=== PATIENT | male | born 1980 | race African-American/Black ===

== ENCOUNTER 2017-08-28 16:29 | Inpatient (IN) | payer OTHER, SELFPAY ==
[2017-08-28] MEDS ORDERED: Dextrose 50% Abboject 50 ML SYRINGE SLOW IVP PRN (19:11)
[2017-08-28] MEDS ORDERED: Promethazine HCl 25 MG/ML VIAL IM PRN ×2 (19:11)
[2017-08-28] MEDS ORDERED: Dextrose 5% in Water 1,000 ML IV PRN (19:11)
[2017-08-28] MEDS ORDERED: HYDROcodone/Acetaminophen 10/325 mg Tablet PO PRN ×2 (19:11)
[2017-08-28] MEDS ORDERED: Ondansetron ODT 4 MG TAB PO PRN (19:11)
[2017-08-28] MEDS ORDERED: Ondansetron HCl/PF 4 MG/2 ML Vial IVP PRN (19:11)
[2017-08-28] MEDS: Famotidine 20 MG TAB PO SCH (21:41)
--- NOTE | 2017-08-28 21:50 | HP ---
DATE OF ADMISSION: 08/28/2017 REQUESTING PHYSICIAN: Dr. Pop Doan. ATTENDING SURGEON: Dr. Ríos. CONSULTATIONS: Orthopedics, Dr. Dubois. HISTORY OF PRESENT ILLNESS: Patient is a 37-year-old -[place] man who was moving a water hea ter for this morning when he slipped and fell. Patient had immediate pain to his right ankle, at [facility] time he had his take him to the emergency department in [place], where he underwent eval uation and examination was noted to have a bimalleolar fracture and transverse process fractures are of the T of the lumbar spine. Given the patient was transferred to facility for further evaluation, admission, and evaluation by Orthopedics. The patient arrived at our facility, he is doing well. Hi s radiographs were reviewed by Dr. Dubois who plans on taking the patient to [facility]. The patient will be made n.p.o. after midnight. ALLERGIES: None. MEDICATIONS: None. PAST MEDICAL HISTORY: None. PAST SURGICAL HISTORY: None. SOCIAL HISTORY: Patient smokes a half to 1 pack per day, drinks 1-2 times per month. Denies drug us e. Works in construction. Lives at home with family. FAMILY MEDICAL HISTORY: Diabetes and hypertension. REVIEW OF SYSTEMS: Ten-point review of systems negative, unless otherwise stated. PHYSICAL EXAMINATION: VITAL SIGNS: Blood pressure 123/75, heart rate 45, respirations 16, oxygen saturation is 98% on room air. GENERAL: Patient is resting comfortably in bed. He is awake, alert, and oriented x3. [place] coma scale is 15. HEENT: Head is normocephalic, atraumatic. Eyes: Extraocular motion intact. PERRLA bilaterally. E ars are atraumatic without discharge. Oropharynx is clear. NECK: Nontender. Trachea is midline. No JVD. CHEST: Clear to auscultation with good inspiratory and expiratory effort. HEART: Regular rate and rhythm. ABDOMEN: Soft, flat, nontender with active bowel sounds. Pelvis is stable. EXTREMITIES: Right lower extremity is immobilized in a posterior splint. All extremities are neurov ascularly intact x4. Capillary refill is less than 3 seconds and pulses are 2+. BACK: Atraumatic and nontender. LABORATORY FINDINGS: White blood cell count 9.6, hemoglobin 13.9, hematocrit 40.2, platelets 247. S odium 136, potassium 4.3, chloride 102, CO2 of 22, BUN 13, creatinine 1.10, glucose 95. LFTs are unr emarkable. CK 333, CK-MB 2.5, troponin less than 0.010. BNP less than 10. Urinalysis is unremarkab le. RADIOGRAPHIC FINDINGS: CT of the chest, abdomen, and pelvis with IV contrast shows mild left lumbar transverse process fractures. No unstable injuries apparent, no acute traumatic injuries demonstrate d. The left transverse process fractures are of L2, L3, and L4. Radiographs of the right ankle show mildly displaced bimalleolar fracture of the right ankle. R adiographs of the tibia and fibula showed again the right bimalleolar ankle fracture. ASSESSMENT AND PLAN: 1. Status post fall. 2. Right bimalleolar fracture. 3. Acute pain secondary to trauma. PLAN: Plan will be to admit the patient to the surgical floor, make n.p.o. after midnight. He will have pain control, pulmonary toilet, gastritis, mechanical DVT prophylaxis postoperatively with Physi carlotta and Occupational Therapy evaluate him and possibly discharged home late tomorrow afternoon or the following day depending on how he progresses with therapy. The evaluation, examination, laboratory, and radiographic findings will be discussed with Dr. Ríos after this dictation.
[2017-08-28] MEDS: Sodium Chloride 0.9% 1,000 ML IV SCH (22:27)
[2017-08-28] MEDS: Acetaminophen 1,000 MG in Premix Bag 1 BAG IVPB SCH (23:33)
[2017-08-28] MEDS: Ketorolac Tromethamine 30 MG/ML VIAL IVP SCH (23:34)
[2017-08-29 00:34] VITALS: TEMP 98.1
[2017-08-29 01:33] VITALS: BMI 24.1
[2017-08-29] MEDS: Acetaminophen 1,000 MG in Premix Bag 1 BAG IVPB SCH (05:56)
[2017-08-29] MEDS: Ketorolac Tromethamine 30 MG/ML VIAL IVP SCH ×2 (05:57→12:54)
[2017-08-29] MEDS: Sodium Chloride 0.9% 1,000 ML IV SCH (05:57)
[2017-08-29 06:03] LABS: #Lymphocytes 1.8 thou/uL (1.20-3.40); #Monocytes 0.8 thou/uL (0.11-0.59); #Neutrophils 2.7 thou/uL (1.40-6.50); %Basophils 0.6 % (0.0-1.0); %Eosinophils 0.9 % (0.0-10.0); %Lymphocytes 33.5 % (21.0-51.0); %Monocytes 14.2 % (0.0-10.0); %Neutrophils 50.7 % (42.0-75.0); Hemoglobin 12.9 g/dL (14.0-18.0); Mean Corpuscular HGB CONC 33.4 g/dL (32.0-36.0); Mean Corpuscular Volume 89.8 fL (78.0-98.0); Mean Platelet Volume 7.6 fL (7.4-10.4); Platelet Count 215 thou/uL (130-400); RBC Distribution Width 11.6 % (11.5-14.5); Red Blood Cell (RBC) Count 4.32 mill/uL (4.70-6.10); White Blood Cell (WBC) Count 5.4 thou/uL (4.8-10.8)
[2017-08-29 06:11] LABS: Anion Gap 10 mmol/L (10-20); BUN (Urea Nitrogen) 15 mg/dL (8.9-20.6); Calc. Creatinine Clearance 129 mL/min (70-130); Carbon Dioxide 26 mmol/L (22-29); Chloride 104 mmol/L (98-107); Estimated GFR-MDRD Greater than 90; Glucose 98 mg/dL (70-105); Sodium 136 mmol/L (136-145)
[2017-08-29] MEDS ORDERED: Fentanyl 100 MCG/2 ML VIAL ONE (07:16)
[2017-08-29] MEDS ORDERED: Neomycin-Polymyxin 1 ML AMP ONE (07:22)
[2017-08-29] MEDS ORDERED: CEFAZOLIN/Water 2 GM/20 ML SYRINGE ONE (07:53)
[2017-08-29] MEDS ORDERED: Bupivacaine HCl 0.5%/Epinephrine 1:200,000/PF 30 ml Vial ONE (08:28)
[2017-08-29] MEDS: Famotidine 20 MG TAB PO SCH (09:00)
[2017-08-29] MEDS ORDERED: Promethazine HCl 25 MG/ML VIAL SLOW IVP PRN (09:15)
[2017-08-29] MEDS ORDERED: Ondansetron HCl/PF 4 MG/2 ML Vial IVP PRN ×2 (09:15→09:20)
[2017-08-29] MEDS ORDERED: Promethazine HCl 25 MG/ML VIAL IM PRN (09:15)
[2017-08-29] MEDS ORDERED: Fleet Enema 133 ML BOT PR PRN (09:20)
[2017-08-29] MEDS ORDERED: Bisacodyl 10 MG SUPP PR PRN (09:20)
[2017-08-29] MEDS ORDERED: Ondansetron ODT 4 MG TAB PO PRN (09:20)
[2017-08-29] MEDS ORDERED: Cepastat Lozenges 1 LOZ PO PRN (09:20)
[2017-08-29] MEDS ORDERED: Milk Of Magnesia 30 ML UDCUP PO PRN (09:20)
[2017-08-29] MEDS ORDERED: traMADol HCl 50 MG TAB PO PRN (09:20)
--- NOTE | 2017-08-29 10:13 | RAD ---
RIGHT ANKLE 3 VIEWS: Date: 08/29/17 HISTORY: 37-year-old male with history of status post open reduction and internal fixation right ankle. FINDINGS: Four portable fluoroscopic spot films are presented for interpretation. Metal plate and screws are no darius stabilizing the distal fibula and two internal fixation screws are stabilizing the medial malleol us. IMPRESSION: Metal plate and screws and internal fixation screws stabilizing bimalleolar fracture right ankle. POS: PAU
[2017-08-29] MEDS ORDERED: Acetaminophen 500 MG TAB PO SCH (12:00)
--- NOTE | 2017-08-29 14:14 | OP ---
DATE OF OPERATION: 08/29/2017 PREOPERATIVE DIAGNOSIS: Bimalleolar fracture of the right ankle. POSTOPERATIVE DIAGNOSIS: Bimalleolar fracture of the right ankle. PROCEDURE: Open reduction and internal fixation of bimalleolar fracture of the right ankle. SURGEON: Trever Dubois M.D. ANESTHESIA: General. TECHNIQUE: The patient was given preoperative IV antibiotics, taken to the operating room, placed in supine position. Satisfactory general anesthesia was performed. The right foot, ankle, and lower l eg were sterilely prepped and draped in the usual fashion. After exsanguination, tourniquet at the p roximal right calf was raised to 200 mmHg. A 4-inch longitudinal incision was made over the lateral aspect of the ankle over the distal fibula. Blunt and sharp dissection was made down to the fibula. The oblique fracture was located and reduced, held reduced with a bone clamp and initially internall y fixed with a 3.5 cortical screw in a lag fashion. A [employer] 3-hole distal fibular plate was then i nserted using initially 3.5 cortical screw in the shaft and then five 2.7 locking screws distally and a 2.7 screw in the shaft and an additional 3.5 cortical screw in the shaft. This was all performed under fluoroscopic visualization, which showed a good reduction of the lateral and medial fractures a nd good reduction of the ankle joint. A 2 cm incision was made in the medial aspect of the ankle ove r the medial malleolus and under fluoroscopic visualization, 2 guide pins were placed up through the medial malleolus crossing the fracture and two 44 mm 4.0 cannulated screws were inserted, which provi ded excellent fixation and reduction. Both wounds were irrigated with antibiotic solution and closed using 0 Vicryl for the fat and subcutaneous tissue, and the skin was closed with 3-0 Rapide. The wo unds were then infiltrated with 30 mL of 0.5% Marcaine with epinephrine. Sterile dressing was applie d. The patient was placed in a boot. Tourniquet was released. The patient was awakened, extubated, and transferred to the recovery room in stable condition. ESTIMATED BLOOD LOSS: 20 mL. COMPLICATIONS: None. TOURNIQUET TIME: 41 minutes.
[2017-08-29] MEDS ORDERED: PROPOFOL 200 MG/20 ML VIAL ONE (15:01)
[2017-08-29] MEDS ORDERED: Ondansetron HCl/PF 4 MG/2 ML Vial ONE (15:01)
[2017-08-29] MEDS ORDERED: Lidocaine 1% PF 5 ML VIAL ONE (15:01)
[2017-08-29] MEDS ORDERED: ePHEDrine/0.9% NaCl/PF SYRINGE 50 mg/10 ml ONE (15:01)
[2017-08-29] MEDS ORDERED: CEFAZOLIN/Water 2 GM/20 ML SYRINGE SLOW IVP SCH (16:00)
--- NOTE | 2017-08-29 17:05 | CON ---
DATE OF CONSULTATION: 08/29/2017 HISTORY OF PRESENT ILLNESS: Mr. Montaño is a 37-year-old male, who was moving a water heater yesterday, slipped and fell and twisted his right ankle, had immediate pain, deformity in the right ankle. He was brought to the emergency room initially in [place]. X-rays showed bimalleolar fracture of t he right ankle. He was splinted and transferred here to [facility]. He was also noted to h ave transverse process fractures of the thoracic and lumbar spine. PAST MEDICAL HISTORY: None. CURRENT MEDICATIONS: None. ALLERGIES: None. PAST SURGICAL HISTORY: None. PHYSICAL EXAMINATION: GENERAL: The patient is a pleasant male, alert and oriented x3. VITAL SIGNS: The patient is afebrile, respiratory rate is 18, blood pressure 126/76, heart rate 72. HEENT: Unremarkable for age. Cranial nerves II-XII are grossly intact. NECK: Has good range of motion without pain. There is some tenderness in the thoracic and lower lum bar region. LUNGS: Clear bilaterally. HEART: Regular rate and rhythm. ABDOMEN: Soft, nontender, bowel sounds positive. GENITOURINARY: Not done. EXTREMITIES: The patient is able to move his toes, has sensation in the right foot. Good capillary refill. There is moderate swelling in the right ankle with mild deformity. IMPRESSION: Bimalleolar fracture of the right ankle. PLAN: The patient will require open reduction and internal fixation of the right ankle. The risks w ith the condition of surgery include, but are not limited to infection, bleeding, pain, damage to blo od vessels or nerves, nonunion, malunion. The patient may require additional surgery, DVT and PE for mation. The patient was instructed he will need to be nonweightbearing until the fractures have heal ed, which usually 6-8 weeks. He has been admitted, taken to surgery today and he will then need to b e able to control the pain with p.o. medication and demonstrate to physical therapy, ambulate with cr utches safely and be nonweightbearing.
[2017-08-29 19:00] VITALS: BP 153/98
[2017-08-29] MEDS ORDERED: Ferrous Gluconate 324 MG TAB PO SCH (21:00)
[2017-08-29] MEDS ORDERED: Senokot S 8.6-50 MG TAB PO SCH (21:00)
[2017-08-30] MEDS ORDERED: Multivitamin W/ Minerals 1 TAB PO SCH (09:00)
== END 2017-08-29 18:40 | disposition home or self-care (01) | DRG 493 ==
LOC: ERS 16:29 → SURG A 21:08
PROVIDERS: ADMIT Surgery; ATTEND Surgery
PROC: 0QSJ04Z Reposition Right Fibula with Internal Fixation Device, Open Approach (ICD-10-PCS; principal; 2017-08-29)
DX: S82.841A Displaced bimalleolar fracture of right lower leg, initial encounter for closed fracture (principal); S32.029A Unspecified fracture of second lumbar vertebra, initial encounter for closed fracture; S32.039A Unspecified fracture of third lumbar vertebra, initial encounter for closed fracture; S32.049A Unspecified fracture of fourth lumbar vertebra, initial encounter for closed fracture; G89.11 Acute pain due to trauma; W01.0XXA Fall on same level from slipping, tripping and stumbling without subsequent striking against object, initial encounter; F17.210 Nicotine dependence, cigarettes, uncomplicated
CPT/HCPCS: 29515; 76000; 80048; 85025; 96374; C1713; C1769; G8978-GP-CI; G8979-GP-CH; G8980-GP-CI; J0131; J0670; J1885; J2001; J2270; J2405; J2704; J3010